=== PATIENT | female | born 1970 | race Hispanic/Latino ===

== ENCOUNTER 2018-04-01 19:33 | Inpatient (IN) | payer OTHER ==
[~2018-04-01] VITALS: Ht 167.6 cm; Wt 133.3 kg
[2018-04-01 20:12] LABS: APPEARANCE,URINE CLEAR (CLEAR); BILIRUBIN,URINE NEGATIVE (NEGATIVE); COLOR,URINE YELLOW (YELLOW); GLUCOSE, URINE (UA) NEGATIVE (NEGATIVE); KETONES,URINE NEGATIVE (NEGATIVE); LEUKOCYTE ESTERASE ,URINE NEGATIVE (NEGATIVE); NITRATE,URINE NEGATIVE (NEGATIVE); OCCULT BLOOD,URINE NEGATIVE (NEGATIVE); PROTEIN,URINE NEGATIVE (NEGATIVE); UROBILINOGEN,URINE 0.2 mg/dL (0.2-1.0)
[2018-04-01] MEDS ORDERED: MORPHINE SULFATE 4 MG/1ML SYG ONE ×2 (20:26→22:47)
[2018-04-01] MEDS ORDERED: SODIUM CHLORIDE 0.9% 1000ML 2,000 ML IV ONE (20:26)
[2018-04-01] MEDS ORDERED: ONDANSETRON HCL 4 MG/2 ML VIAL ONE (20:26)
[2018-04-01 20:29] LABS: BASOPHILS % (AUTO) 0.8 % (0.0-5.0); EOSINOPHILS % (AUTO) 1.6 % (0.0-8.0); HEMATOCRIT 35.7 % (36-48); LYMPHOCYTES % (AUTO) 23.3 % (21.0-51.0); MEAN CORPUSCULAR HEMOGLOBIN 28.6 pg (27.0-33.0); MEAN CORPUSCULAR HGB CONC 34.4 g/dL (32.0-36.0); MONOCYTES % (AUTO) 6.8 % (3.0-13.0); NEUTROPHILS % (AUTO) 67.5 % (40.0-77.0); PLATELET COUNT (AUTO) 253 K/uL (130-400); RED CELL DISTRIBUTION WIDTH 12.9 % (11.0-15.5)
[2018-04-01] MEDS ORDERED: ZOSYN 3.375GM+NS 50ML 50 ML IV ONE (20:58)
[2018-04-01 21:17] LABS: CREATININE 0.8 mg/dL (0.5-1.5)
[2018-04-01] MEDS ORDERED: KETOROLAC TROMETHAMINE 15MG/ML ONE (21:21)
[2018-04-01 21:22] LABS: BILIRUBIN,TOTAL 0.3 mg/dL (0.2-1.0); TOTAL PROTEIN, SERUM 7.4 g/dL (6.0-8.3)
[2018-04-02 02:15] VITALS: BP 105/66
[2018-04-02] MEDS ORDERED: INSU100I24 SQ (02:26)
[2018-04-02] MEDS ORDERED: METF500T6 PO (02:26)
[2018-04-02] MEDS ORDERED: MORPHINE SULFATE 4 MG/1ML SYG ONE (03:29)
[2018-04-02] MEDS ORDERED: ONDANSETRON HCL 4 MG/2 ML VIAL ONE ×2 (03:29→17:41)
[2018-04-02 04:47] VITALS: BP 102/61
[2018-04-02] MEDS ORDERED: GLUCAGON 1MG KIT 1 MG ML IM PRN (05:15)
[2018-04-02] MEDS ORDERED: DEXTROSE 50%-WATER 50 ML DISP.SYRIN IV PRN (05:15)
[2018-04-02] MEDS ORDERED: MORPHINE SULFATE 4 MG/1ML SYG IVP PRN (05:15)
[2018-04-02] MEDS ORDERED: ONDANSETRON HCL MDV 20ML 2 MG/ML VIAL IVP PRN (05:15)
[2018-04-02] MEDS: INSULIN R NPO SSI SQ SCH ×3 (06:00→18:00)
[2018-04-02] MEDS: METRONIDAZOLE 500MG/100ML BAG 100 ML IVPB SCH ×3 (06:12→21:26)
[2018-04-02 06:32] LABS: BASOPHILS % (AUTO) 0.4 % (0.0-5.0); EOSINOPHILS % (AUTO) 2.1 % (0.0-8.0); HEMATOCRIT 34.1 % (36-48); LYMPHOCYTES % (AUTO) 22.1 % (21.0-51.0); MEAN CORPUSCULAR HGB CONC 34.9 g/dL (32.0-36.0); NEUTROPHILS % (AUTO) 68.4 % (40.0-77.0); PLATELET COUNT (AUTO) 225 K/uL (130-400); RED CELL DISTRIBUTION WIDTH 13.1 % (11.0-15.5); WHITE BLOOD COUNT (AUTO) 10.1 K/uL (4.8-10.8)
[2018-04-02 06:57] LABS: CREATININE 0.7 mg/dL (0.5-1.5); POTASSIUM 3.8 mmol/L (3.5-5.1)
[2018-04-02] MEDS ORDERED: INSULIN R PO SS1 SQ SCH (07:30)
[2018-04-02 08:15] VITALS: BP 124/66
[2018-04-02] MEDS: FAMOTIDINE/PF 20 MG/2 ML VIAL IV SCH ×2 (09:24→21:27)
[2018-04-02 12:00] VITALS: BP 123/72
[2018-04-02 16:00] VITALS: BP 158/70
[2018-04-02 19:00] VITALS: BP 130/68
[2018-04-02] MEDS: INSULIN HUMULIN R 100 UNIT/ML 3ML SQ SCH (21:00)
[2018-04-03] VITALS: BP 125/67
[2018-04-03 04:00] VITALS: BP 132/79
[2018-04-03] MEDS: SODIUM CHLORIDE 0.9% 1000ML 1,000 ML IV SCH ×3 (05:47→11:16)
[2018-04-03] MEDS: METRONIDAZOLE 500MG/100ML BAG 100 ML IVPB SCH ×3 (05:47→20:30)
[2018-04-03] MEDS: INSULIN HUMULIN R 100 UNIT/ML 3ML SQ SCH ×4 (06:24→20:29)
[2018-04-03 08:00] VITALS: BP 129/68
[2018-04-03] MEDS ORDERED: ACETAMINOPHEN 325 MG TAB ONE (09:52)
[2018-04-03] MEDS: FAMOTIDINE/PF 20 MG/2 ML VIAL IV SCH ×2 (09:54→20:30)
[2018-04-03] MEDS ORDERED: ACETAMINOPHEN 325 MG TAB PO PRN (10:00)
[2018-04-03 12:00] VITALS: BP 136/84
[2018-04-03 16:00] VITALS: BP 146/73
[2018-04-03 19:00] VITALS: BP 114/57
[2018-04-03] MEDS ORDERED: ONDANSETRON HCL 4 MG/2 ML VIAL ONE (20:34)
[2018-04-03] MEDS ORDERED: KETOROLAC TROMETHAMINE 30MG/ML ONE (23:48)
[2018-04-04] VITALS: BP 119/69
[2018-04-04] MEDS ORDERED: KETOROLAC TROMETHAMINE 30MG/ML IV SCH
[2018-04-04] MEDS ORDERED: HYDROMORPHONE 1 MG/1 ML AMP IVP PRN (02:30)
[2018-04-04] MEDS: SODIUM CHLORIDE 0.9% 1000ML 1,000 ML IV SCH ×2 (02:44→08:12)
[2018-04-04 04:00] VITALS: BP 112/55
[2018-04-04] MEDS: METRONIDAZOLE 500MG/100ML BAG 100 ML IVPB SCH ×3 (05:16→20:39)
[2018-04-04 06:10] LABS: BASOPHILS % (AUTO) 0.3 % (0.0-5.0); LYMPHOCYTES % (AUTO) 27.3 % (21.0-51.0); MEAN CORPUSCULAR HGB CONC 34.6 g/dL (32.0-36.0); MEAN CORPUSCULAR VOLUME 83.8 fL (79-99); MONOCYTES % (AUTO) 7.7 % (3.0-13.0); NEUTROPHILS % (AUTO) 62.7 % (40.0-77.0); PLATELET COUNT (AUTO) 228 K/uL (130-400); RED BLOOD CELL COUNT(AUTO) 3.94 MIL/uL (4.00-5.50); RED CELL DISTRIBUTION WIDTH 12.9 % (11.0-15.5)
[2018-04-04 06:28] LABS: CREATININE 0.7 mg/dL (0.5-1.5); POTASSIUM 3.4 mmol/L (3.5-5.1)
[2018-04-04] MEDS: INSULIN HUMULIN R 100 UNIT/ML 3ML SQ SCH ×3 (07:30→20:39)
[2018-04-04 08:00] VITALS: BP 131/88
[2018-04-04] MEDS ORDERED: ONDANSETRON HCL 4 MG/2 ML VIAL ONE (08:06)
[2018-04-04] MEDS: FAMOTIDINE/PF 20 MG/2 ML VIAL IV SCH ×2 (08:12→20:39)
[2018-04-04] MEDS ORDERED: PROMETHAZINE HCL 25 MG/ML 1ML AMPULE IM ONE (08:27)
[2018-04-04] MEDS ORDERED: PROMETHAZINE HCL 25 MG/ML 1ML AMPULE IM PRN (08:30)
[2018-04-04] MEDS: BUTALB/ACETAMINOPHEN/CAFFEINE 1 EACH TABLET PO PRN ×3 (10:17→23:37)
[2018-04-04 11:31] VITALS: BP 120/65
[2018-04-04 16:00] VITALS: BP 119/56
[2018-04-04 20:00] VITALS: BP 136/70
[2018-04-05] VITALS: BP 130/59
[2018-04-05 04:00] VITALS: BP 134/80
[2018-04-05] MEDS: INSULIN HUMULIN R 100 UNIT/ML 3ML SQ SCH (06:28)
[2018-04-05] MEDS: METRONIDAZOLE 500MG/100ML BAG 100 ML IVPB SCH (06:34)
[2018-04-05 07:00] VITALS: BP 147/82
[2018-04-05] MEDS: FAMOTIDINE/PF 20 MG/2 ML VIAL IV SCH (07:45)
[2018-04-05 11:00] VITALS: BP 128/72
[2018-04-05] MEDS ORDERED: LEVO500T2 PO (11:18)
[2018-04-05] MEDS ORDERED: METR500T PO (11:18)
== END 2018-04-05 12:35 | disposition home or self-care (01) | DRG 392 ==
LOC: EDH 19:33 → EDHIP 04-02 00:30 → OBSVTOIN 04-02 00:30 → 3AH 04-02 02:08
PROVIDERS: ADMIT Family Medicine; ATTEND Family Medicine
DX: K57.32 Diverticulitis of large intestine without perforation or abscess without bleeding (principal); Z68.42 Body mass index [BMI] 45.0-49.9, adult; E11.9 Type 2 diabetes mellitus without complications; E66.01 Morbid (severe) obesity due to excess calories; K59.00 Constipation, unspecified; K76.0 Fatty (change of) liver, not elsewhere classified; Z82.0 Family history of epilepsy and other diseases of the nervous system; Z83.3 Family history of diabetes mellitus; Z90.710 Acquired absence of both cervix and uterus; Z89.421 Acquired absence of other right toe(s)
CPT/HCPCS: 36415; 74176; 80048; 80053; 81003; 82948; 83690; 85025; J1170; J1885; J2270; J2405; J2543; J2550; J3490; J7030

== ENCOUNTER 2018-12-27 17:27 | Emergency (ER) | payer OTHER ==
[~2018-12-27 17:27] MED LIST: INSU100I24 SQ; LEVO500T2 PO; METF-444 PO; METR500T PO
[2018-12-27] MEDS ORDERED: IBUPROFEN 600 MG TABLET ONE (17:59)
[2018-12-27] MEDS ORDERED: ACETAMINOPHEN-CODEINE 300/30MG TAB ONE (17:59)
== END 2018-12-27 18:22 | disposition home or self-care (01) ==
LOC: EDH 17:27
DX: M25.561 Pain in right knee (principal); E11.9 Type 2 diabetes mellitus without complications; Z90.710 Acquired absence of both cervix and uterus; Z90.49 Acquired absence of other specified parts of digestive tract; Z72.0 Tobacco use
CPT/HCPCS: 73562